=== PATIENT | male | born 1995 | race Native Hawaiian/Other Pacific Islander ===

== ENCOUNTER 2016-12-06 01:55 | Emergency (ER) | payer BC ==
[2016-12-06 02:07] VITALS: BP 123/91
[2016-12-06] MEDS ORDERED: LORazepam TAB(*) 1 MG PO ONE (02:11)
[2016-12-06 02:49] LABS: Urine Bilirubin Negative (Negative); Urine Glucose Negative (Negative); Urine Nitrite Negative (Negative)
[2016-12-06 02:50] LABS: Hematocrit 50 % (42-52); Mean Corpuscular HGB Conc 34 g/dl (31-36); Mean Corpuscular Hemoglobin 28 pg (27-31); Mean Corpuscular Volume 83 fL (80-94); Mean Platelet Volume 8 um3 (7.4-10.4); Red Cell Distribution Width 13 % (10.5-15); White Blood Count 7.2 10^3/ul (3.5-10.8)
--- NOTE | 2016-12-06 03:04 | ED ---
Rob Clements Claudia, scribed for Delmer Collins MD on 12/06/16 at 0216 . Psychiatric Complaint - HPI Summary HPI Summary: 21 year old male presents to the ED with a panic attack. Pt states that around midnight he began to have a panic attack .He notes that he had a panic attack in the past and recognized Sx. Pt states that he would like a MHE. Pt denies taking any Rx tonight for the anxiety. - History Of Current Complaint Chief Complaint: EDMentalHealth Time Seen by Provider: 12/06/16 02:05 Hx Obtained From: Patient Onset/Duration: Sudden Onset, Lasting Hours, Still Present Character: Anxious Aggravating Factor(s): Nothing Alleviating Factor(s): Nothing - Allergies/Home Medications Allergies/Adverse Reactions: Allergies Allergy/AdvReac Type Severity Reaction Status Date / Time No Known Allergies Allergy Verified 06/05/16 11:43 PMH/Surg Hx/FS Hx/Imm Hx Previously Healthy: Yes Endocrine/Hematology History: Denies: Hx Diabetes, Hx Thyroid Disease Cardiovascular History: Denies: Hx Hypertension Respiratory History: Denies: Hx Asthma, Hx Chronic Obstructive Pulmonary Disease (COPD) GI History: Denies: Hx Ulcer History: Reports: Hx Kidney Stones - RIGHT, PRESENTLY Sensory History: Reports: Hx Contacts or Glasses - GLASSES Denies: Hx Hearing Aid Opthamlomology History: Reports: Hx Contacts or Glasses - GLASSES Psychiatric History: Reports: Hx Depression - NO MEDS - Surgical History Surgery Procedure, Year, and Place: 2013 ORIF LEFT RADIUS, [facility] Hx Anesthesia Reactions: Yes - NAUSEA Infectious Disease History: No Infectious Disease History: Denies: Hx Clostridium Difficile, Hx Hepatitis, Hx Human Immunodeficiency Virus (HIV), Hx of Known/Suspected MRSA, Hx Shingles, Hx Tuberculosis, Hx Known/ Suspected VRE, Hx Known/Suspected VRSA, History Other Infectious Disease, Traveled Outside the [place] in Last 30 Days - Family History Known Family History: Positive: None Negative: Hypertension, Diabetes - Social History Alcohol Use: Occasionally Hx Substance Use: Yes Substance Use Type: Reports: Marijuana Substance Use Comment - Amount & Last Used: LAST TIME 2 WEEKS AGO Hx Tobacco Use: No Smoking Status (MU): Current Some Day Smoker Type: Cigarettes Amount Used/How Often: "SOCIALLY" Review of Systems Negative: Fever, Chills Eyes: Negative ENT: Negative Cardiovascular: Negative Respiratory: Negative Genitourinary: Negative Musculoskeletal: Negative Skin: Negative Neurological: Negative Positive: Anxious All Other Systems Reviewed And Are Negative: Yes Physical Exam Triage Information Reviewed: Yes Vital Signs On Initial Exam: Initial Vitals Temp Pulse Resp BP Pulse Ox 97.9 F 111 16 123/91 99 12/06/16 02:05 12/06/16 02:05 12/06/16 02:05 12/06/16 02:05 12/06/16 02:05 Vital Signs Reviewed: Yes Appearance: Positive: Well-Appearing Skin: Positive: Warm Head/Face: Positive: Normal Head/Face Inspection Eyes: Positive: IRAJ ENT: Positive: Hearing grossly normal Neck: Positive: Supple Respiratory/Lung Sounds: Positive: Breath Sounds Present Cardiovascular: Positive: Normal Abdomen Description: Positive: Nontender, Soft Bowel Sounds: Positive: Present Musculoskeletal: Positive: Strength/ROM Intact Neurological: Positive: Sensory/Motor Intact, Alert, Oriented to Person Place, Time Psychiatric: Positive: Anxious Diagnostics - Vital Signs Vital Signs Temp Pulse Resp BP Pulse Ox 12/06/16 02:05 97.9 F 111 16 123/91 99 - Laboratory Lab Results: Lab Results 12/06/16 12/06/16 Range/Units 02:28 02:28 WBC 7.2 (3.5-10.8) 10^3/ul RBC 6.00 H (4.0-5.4) 10^6/ul Hgb 17.0 (14.0-18.0) g/dl Hct 50 (42-52) % MCV 83 (80-94) fL MCH 28 (27-31) pg MCHC 34 (31-36) g/dl RDW 13 (10.5-15) % Plt Count 224 (150-450) 10^3/ul MPV 8 (7.4-10.4) um3 Neut % (Auto) 69.3 (38-83) % Lymph % (Auto) 22.1 L (25-47) % Charles % (Auto) 5.9 (1-9) % Eos % (Auto) 1.5 (0-6) % Baso % (Auto) 1.2 (0-2) % Absolute Neuts (auto) 5.0 (1.5-7.7) 10^3/ul Absolute Lymphs (auto) 1.6 (1.0-4.8) 10^3/ul Absolute Monos (auto) 0.4 (0-0.8) 10^3/ul Absolute Eos (auto) 0.1 (0-0.6) 10^3/ul Absolute Basos (auto) 0.1 (0-0.2) 10^3/ul Absolute Nucleated RBC 0 10^3/ul Nucleated RBC % 0 Urine Color Yellow Urine Appearance Clear Urine pH 6.0 (5-9) Ur Specific [place] 1.015 (1.010-1.030) Urine Protein Negative (Negative) Urine Ketones Trace H (Negative) Urine Blood Negative (Negative) Urine Nitrate Negative (Negative) Urine Bilirubin Negative (Negative) Urine Urobilinogen Negative (Negative) Ur Leukocyte Esterase Negative (Negative) Urine Glucose Negative (Negative) Result Diagrams: 12/06/16 02:28 12/06/16 02:28 Lab Statement: Any lab studies that have been ordered have been reviewed, and results considered in the medical decision making process. Re-Evaluation - Re-Evaluation Second Eval Re-Evaluation Time: 05:34 - pt seen and cleared by crisis Change: Improved Course/Dx - Course Assessment/Plan: Pt presents with anxiety. Pt is medically cleared for a MHE at 2:22am on 12/06/16. - Differential Dx/Clinical Impression Provider Diagnosis: Anxiety - Physician Notifications Patient Is Medically Stable For: Psych Evaluation - 2:16 on 12/06/16 Discharge - Discharge Plan Condition: Improved Disposition: HOME Referrals: Tirso Lira MD [Primary Care Provider] - The documentation as recorded by the Rob gregg Claudia accurately reflects the service I personally performed and the decisions made by , Delmer Collins MD.
[2016-12-06 03:06] LABS: ALT 39 U/L (7-52); AST 23 U/L (13-39); Albumin 4.9 g/dL (3.2-5.2); Alkaline Phosphatase 70 U/L (34-104); Anion Gap 9 mmol/L (2-11); BUN/Creatinine Ratio 15.9 (8-20); Benzodiazepine Urine Screen None Detected (None Detect); Blood Urea Nitrogen 14 mg/dL (6-24); CO2 Carbon Dioxide 24 mmol/L (22-32); Calcium 9.6 mg/dL (8.6-10.3); Chloride 103 mmol/L (101-111); EGFR African American 140.6 (>60); EGFR Non-African American 109.3 (>60); Globulin 2.7 g/dL (2-4); Glucose 98 mg/dL (70-100); Potassium 3.7 mmol/L (3.5-5.0); Sodium 136 mmol/L (133-145); Total Protein 7.6 g/dL (6.4-8.9)
[2016-12-06 03:18] LABS: Acetaminophen < 15 mcg/mL; Alcohol < 10 mg/dL (<10); Salicylate < 2.50 mg/dL (<30)
[2016-12-06 03:29] LABS: TSH (Thyroid Stimulating Horm) 1.93 mcIU/mL (0.34-5.60)
== END 2016-12-06 05:35 | disposition home or self-care (01) ==
LOC: ED 01:55
DX: F41.1 Generalized anxiety disorder (principal); Z72.0 Tobacco use
CPT/HCPCS: 36415; 80053; 80307; 80320; 80329; 81003; 84443; 85025; 99284; A9270-GY; G0480

== ENCOUNTER 2017-10-31 17:03 | Emergency (ER) | payer BC ==
--- OUTSIDE RECORDS SUMMARY | 2017-10-31 20:09 | XMS REPORT ---
:1995 External Reference #:[id number] Author Organization [facility] Address [address] [place] [address] Phone [phone] Care Team Providers Name Role Phone Tirso Lira MD Care Team Information Family Medicine Physician Unavailable Tirso Lira MD Primary Care Physician Unavailable Payers Type Date Identification Numbers Payment Provider Subscriber Commercial Effective: Policy Number: Out Of Area 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 Active episode, unspecified Onset: 05/30/2016 Kidney stone Tirso Lira M.D. Resolved Resolved: 07/11/2016 Onset: 05/30/2016 Chalazion Tirso Lira M.D. Resolved Resolved: 07/11/2016 Onset: 05/30/2016 Anxiety state Tirso Lira M.D. Resolved Resolved: 07/11/2016 Family History Date Family Member(s) Problem(s) Comments Father Hypertension Father Hyperlipidemia Father Gastroesophageal Reflux Disease (GERD) Social History Type Date Description Comments Smoking Patient is a current smoker, smokes Has cut down from a PPD to 6 every day cigarettes/day. Smoking 10/31/2017 Patient is a former smoker Patient reports he has not smoked in 3 weeks Allergies, Adverse Reactions, Alerts Date Description Reaction Status Severity Comments 05/30/2016 NKDA active Medications Medication Date Status Form Strength Qnty SIG Indications Ordering Provider Johan 10/31 Active Tablets 500mg 20tab 1 by Oxana s mouth Russell, twice a [employer] day for 10 days Hydrocodone-Acetami 10/31 Active Tablets 5-325mg 60tab 1 by Oxana mcpherson s mouth Russell, four [employer] times a day as needed pain Methylphenidate HCL 09/05 Hx Tablets 10mg 60tab 1 by F90.0 Tirso AJudith s mouth Darlow, - once a M.D. two times a day (separate d by 4 hours) as directed Escitalopram 09/05 Hx Tablets 20mg 30tab 1 by F41.9 Tirso AJudith Oxalate s mouth Darlow, - every day M.D. 10/31 Dexmethylphenidate 08/01 Hx Caps ER 20mg 30cap 1 by F90.0 Tirso AJudith HCL ER /2015 24HR s mouth in Dar, - the M.D. 10/31 Escitalopram 08/01 Hx Tablets 10mg 30tab 1 by F41.9 Tirso A. Oxalate s mouth Darlow, - every day M.D. 09/05 Bupropion HCL ER 30 Hx Tablets 150mg 90tab 2 by F32.9 Tirso A. (XL) ER 24HR s mouth Darlow, - every day M.D. 09/05 Flomax 00/00 Hx Capsules 0.4mg 1 by Unknown /0000 mouth - every day 07/11 Percocet 00/00 Hx Tablets 5-325mg 1 po q 4 Unknown /0000 hrs prn - 07/11 Medications Administered in Office Medication Date Status Form Strength Qnty SIG Indications Ordering Provider TB Intradermal Administered Injection Tirso A. Test Lesley Lira M.D. TB Intradermal Administered Injection Tirso A. Test Lesley Lira M.D. TB Intradermal Administered Injection Unknown Test 009 TB Intradermal Administered Injection Unknown Test 000 Immunizations CPT Code Status Date Vaccine Lot # U-HPV Given 11/03/2014 HPV,Unspecified U-Flu Given 11/03/2014 Influenza,Unspecified U-Menin Given 10/19/2013 Meningococcal,Unspecified U-HPV Given 07/21/2012 HPV,Unspecified U-Flu Given 07/21/2012 Influenza,Unspecified U-HepA Given 07/26/2011 Hepatitis A,Unspecified U-Flu Given 07/26/2011 Influenza,Unspecified U-HepA Given 07/25/2010 Hepatitis A,Unspecified U-FluNa Given 07/25/2010 Influenza,Nasal,Unspecified [id number] Given 02/01/2009 Varicella (Chicken Pox) Immunization U-Menin Given 09/30/2007 Meningococcal,Unspecified 14158 Given 09/30/2007 Tdap Tetanus, W Pertussis 89770 Given 05/29/2005 Varicella (Chicken Pox) Immunization 09688 Given 06/25/2000 MMR Virus Immunization U-DTaP Given 06/25/2000 DTaP,Unspecified U-Polio Given 06/25/2000 Polio,Unspecified U-HIB Given 09/23/1996 Hib,Unspecified U-DTaP Given 09/23/1996 DTaP,Unspecified 51661 Given 05/24/1996 MMR Virus Immunization U-HepB Given 01/23/1996 Hepatitis B,Unspecified U-DTaP Given 1995 DTaP,Unspecified U-HIB Given 1995 Hib,Unspecified U-Polio Given 1995 Polio,Unspecified U-Polio Given 1995 Polio,Unspecified U-HIB Given 1995 Hib,Unspecified U-DTaP Given 1995 DTaP,Unspecified U-Polio Given 1995 Polio,Unspecified U-HIB Given 1995 Hib,Unspecified U-HepB Given 1995 Hepatitis B,Unspecified U-DTaP Given 1995 DTaP,Unspecified U-HepB Given 1995 Hepatitis B,Unspecified Vital Signs Date Vital Result Comment 10/31/2017 BP Systolic 120 mmHg BP Diastolic 62 mmHg Heart Rate 80 /min Body Temperature 99.3 F Respiratory Rate 16 /min Height 67 inches 5'7" Weight 157.25 lb BMI (Body Mass Index) 24.6 kg/m2 09/05/2016 BP Systolic 124 mmHg BP Diastolic 80 mmHg Heart Rate 92 /min Body Temperature 98.6 F Respiratory Rate 16 /min Height 67 inches 5'7" Weight 152.00 lb BMI (Body Mass Index) 23.8 kg/m2 08/01/2016 BP Systolic 120 mmHg BP Diastolic 76 mmHg Heart Rate 96 /min Body Temperature 97.8 F Respiratory Rate 16 /min Height 67 inches 5'7" Weight 160.00 lb BMI (Body Mass Index) 25.1 kg/m2 07/11/2016 BP Systolic 122 mmHg BP Diastolic 76 mmHg Heart Rate 80 /min Body Temperature 97.5 F Respiratory Rate 16 /min Height 67 inches 5'7" Weight 158.00 lb BMI (Body Mass Index) 24.7 kg/m2 05/30/2016 BP Systolic 112 mmHg BP Diastolic 70 mmHg Heart Rate 76 /min Body Temperature 97.4 F Respiratory Rate 16 /min Height 67 inches 5'7" Weight 157.00 lb BMI (Body Mass Index) 24.6 kg/m2 Results Test Date Test Result H/L Range Note Laboratory test finding 12/06/2016 Acetaminophen < 15 g/mL 1 Alcohol < 10 mg/dL <10 Salicylate < 2.50 mg/dL <30 TSH (Thyroid Stim Horm) 1.93 mcIU/mL 0.34-5.60 Comp Metabolic Panel 12/06/2016 Sodium 136 mmol/L 133-145 Potassium 3.7 mmol/L 3.5-5.0 Chloride 103 mmol/L 101-111 Co2 Carbon Dioxide 24 mmol/L 22-32 Anion Gap 9 mmol/L 2-11 Glucose 98 mg/dL 70-100 Blood Urea Nitrogen 14 mg/dL 6-24 Creatinine 0.88 mg/dL 0.67-1.17 BUN/Creatinine Ratio 15.9 8-20 Calcium 9.6 mg/dL 8.6-10.3 Total Protein 7.6 g/dL 6.4-8.9 Albumin 4.9 g/dL 3.2-5.2 Globulin 2.7 g/dL 2-4 Albumin/Globulin Ratio 1.8 1-3 Total Bilirubin 0.40 mg/dL 0.2-1.0 Alkaline Phosphatase 70 U/L 34-104 Alt 39 U/L 7-52 Ast 23 U/L 13-39 Egfr Non- 109.3 >60 Egfr 140.6 >60 2 CBC Auto Diff 12/06/2016 White Blood Count 7.2 10^3/uL 3.5-10.8 Red Blood Count 6.00 10^6/uL High 4.0-5.4 Hemoglobin 17.0 g/dL 14.0-18.0 Hematocrit 50 % 42-52 Mean Corpuscular Volume 83 fL 80-94 Mean Corpuscular Hemoglobin 28 pg 27-31 Mean Corpuscular HGB Conc 34 g/dL 31-36 Red Cell Distribution Width 13 % 10.5-15 Platelet Count 224 10^3/uL 150-450 Mean Platelet Volume 8 um3 7.4-10.4 Abs Neutrophils 5.0 10^3/uL 1.5-7.7 Abs Lymphocytes 1.6 10^3/uL 1.0-4.8 Abs Monocytes 0.4 10^3/uL 0-0.8 Abs Eosinophils 0.1 10^3/uL 0-0.6 Abs Basophils 0.1 10^3/uL 0-0.2 Abs Nucleated RBC 0 10^3/uL Granulocyte % 69.3 % 38-83 Lymphocyte % 22.1 % Low 25-47 Monocyte % 5.9 % 1-9 Eosinophil % 1.5 % 0-6 Basophil % 1.2 % 0-2 Nucleated Red Blood Cells % 0 Urinalysis Profile 12/06/2016 Urine Color Yellow Urine Appearance Clear Urine Specific Scott 1.015 1.010-1.030 Urine pH 6.0 5-9 Urine Urobilinogen Negative Negative Urine Ketones Trace Negative Urine Protein Negative Negative Urine Leukocytes Negative Negative Urine Blood Negative Negative Urine Nitrite Negative Negative Urine Bilirubin Negative Negative Urine Glucose Negative Negative Urine Drug SCR ED 12/06/2016 Amphetamine Ur Screen None Detected None Detect & Pain Clinic Barbiturates Urine Screen None Detected None Detect Benzodiazepine Urine Screen None Detected None Detect Urine Cannabinoids Screen None Detected None Detect Urine Cocaine Screen None Detected None Detect Urine Opiates Screen None Detected None Detect Urine Phencyclidine Screen None Detected None Detect 3 Laboratory test 09/05/2016 TSH 1.40 mIU/L 0.50-6.00 finding Laboratory test 06/05/2016 Surgical Pathology SEE RESULT BELOW 4 finding Stone Analysis 06/05/2016 Kidney Stone Source Ureter Kidney Stone 1st Constituent See Comment 5 Kidney Stone 2nd Constituent See Comment 6 Urinalysis Profile 05/27/2016 Urine Color Straw Urine Appearance Clear Urine Specific [place] 1.011 1.010-1.030 Urine pH 6.0 5-9 Urine Urobilinogen Negative Negative Urine Ketones Trace Negative Urine Protein Negative Negative Urine Leukocytes Negative Negative Urine Blood 2+ Negative Urine Nitrite Negative Negative Urine Bilirubin Negative Negative Urine Glucose Negative Negative Urine White Blood Cell Trace(0-5/hpf) Absent Urine Red Blood Cell 3+(>10/hpf) Absent Urine Bacteria Absent Absent CBC Auto Diff 05/27/2016 White Blood Count 9.9 10^3/uL 3.5-10.8 Red Blood Count 5.78 10^6/uL High 4.0-5.4 Hemoglobin 16.5 g/dL 14.0-18.0 Hematocrit 49 % 42-52 Mean Corpuscular Volume 84 fL 80-94 Mean Corpuscular Hemoglobin 29 pg 27-31 Mean Corpuscular HGB Conc 34 g/dL 31-36 Red Cell Distribution Width 13 % 10.5-15 Platelet Count 217 10^3/uL 150-450 Mean Platelet Volume 8 um3 7.4-10.4 Abs Neutrophils 8.7 10^3/uL High 1.5-7.7 Abs Lymphocytes 0.4 10^3/uL Low 1.0-4.8 Abs Monocytes 0.4 10^3/uL 0-0.8 Abs Eosinophils 0.2 10^3/uL 0-0.6 Abs Basophils 0.2 10^3/uL 0-0.2 Abs Nucleated RBC 0.01 10^3/uL Granulocyte % 87.9 % High 38-83 Lymphocyte % 4.5 % Low 25-47 Monocyte % 3.9 % 1-9 Eosinophil % 1.6 % 0-6 Basophil % 2.1 % High 0-2 Nucleated Red Blood Cells % 0.1 Inr/Protime 05/27/2016 Inr 0.87 Low 0.89-1.11 Laboratory test finding 05/27/2016 Partial Thrombo Time 32.7 seconds 26.0 -36.3 PTT Comp Metabolic Panel 05/27/2016 Sodium 136 mmol/L 133-145 Potassium 4.0 mmol/L 3.5-5.0 Chloride 102 mmol/L 101-111 Co2 Carbon Dioxide 28 mmol/L 22-32 Anion Gap 6 mmol/L 2-11 Glucose 108 mg/dL High 70-100 Blood Urea Nitrogen 16 mg/dL 6-24 Creatinine 1.29 mg/dL High 0.67-1.17 BUN/Creatinine Ratio 12.4 8-20 Calcium 10.0 mg/dL 8.6-10.3 Total Protein 7.7 g/dL 6.4-8.9 Albumin 5.2 g/dL 3.2-5.2 Globulin 2.5 g/dL 2-4 Albumin/Globulin Ratio 2.1 1-3 Total Bilirubin 0.40 mg/dL 0.2-1.0 Alkaline Phosphatase 65 U/L 34-104 Alt 28 U/L 7-52 Ast 21 U/L 13-39 Egfr Non- 70.3 >60 Egfr 90.4 >60 7 Laboratory test finding 05/27/2016 Lipase 10 U/L Low 11.0-82.0 C Reactive Protein < 1.00 mg/L < 5.00 8 CBC Auto Diff 03/28/2016 White Blood Count 9.5 10^3/uL 3.5-10.8 Red Blood Count 5.94 10^6/uL High 4.0-5.4 Hemoglobin 16.9 g/dL 14.0-18.0 Hematocrit 51 % 42-52 Mean Corpuscular Volume 86 fL 80-94 Mean Corpuscular Hemoglobin 28 pg 27-31 Mean Corpuscular HGB Conc 33 g/dL 31-36 Red Cell Distribution Width 13 % 10.5-15 Platelet Count 226 10^3/uL 150-450 Mean Platelet Volume 7 um3 Low 7.4-10.4 Abs Neutrophils 7.5 10^3/uL 1.5-7.7 Abs Lymphocytes 1.3 10^3/uL 1.0-4.8 Abs Monocytes 0.5 10^3/uL 0-0.8 Abs Eosinophils 0.2 10^3/uL 0-0.6 Abs Basophils 0.1 10^3/uL 0-0.2 Abs Nucleated RBC 0 10^3/uL Granulocyte % 78.5 % 38-83 Lymphocyte % 13.8 % Low 25-47 Monocyte % 4.9 % 1-9 Eosinophil % 2.1 % 0-6 Basophil % 0.7 % 0-2 Nucleated Red Blood Cells % 0 Comp Metabolic Panel 03/28/2016 Sodium 137 mmol/L 133-145 Potassium 4.1 mmol/L 3.5-5.0 Chloride 103 mmol/L 101-111 Co2 Carbon Dioxide 29 mmol/L 22-32 Anion Gap 5 mmol/L 2-11 Glucose 98 mg/dL 70-100 Blood Urea Nitrogen 11 mg/dL 6-24 Creatinine 0.83 mg/dL 0.67-1.17 BUN/Creatinine Ratio 13.3 8-20 Calcium 9.5 mg/dL 8.6-10.3 Total Protein 7.0 g/dL 6.4-8.9 Albumin 4.9 g/dL 3.2-5.2 Globulin 2.1 g/dL 2-4 Albumin/Globulin Ratio 2.3 1-3 Total Bilirubin 0.40 mg/dL 0.2-1.0 Alkaline Phosphatase 69 U/L 34-104 Alt 40 U/L 7-52 Ast 20 U/L 13-39 Egfr Non- 117.0 >60 Egfr 150.4 >60 9 Laboratory test finding 03/28/2016 C Reactive Protein < 1.00 mg/L &lt ; 5.00 10 Urinalysis Profile 03/28/2016 Urine Color Straw Urine Appearance Clear Urine Specific [place] 1.010 1.010-1.030 Urine pH 7.0 5-9 Urine Urobilinogen Negative Negative Urine Ketones Negative Negative Urine Protein Negative Negative Urine Leukocytes Negative Negative Urine Blood 1+ Negative Urine Nitrite Negative Negative Urine Bilirubin Negative Negative Urine Glucose Negative Negative Urine White Blood Cell Absent Absent Urine Red Blood Cell 3+(>10/hpf) Absent Urine Bacteria Absent Absent 1 Therapeutic concentration: <50 ug/mL Toxic concentration: >120 ug/mL 2 Because ethnic data is not always readily available, this report includes an eGFR for both -Americans and non- Americans. The National Kidney Disease Education Program (NKDEP) does not endorse the use of the MDRD equation for patients that are not between the ages of 18 and 70, are , have extremes of body size, muscle mass, or nutritional status, or are non- or non-. According to the National Kidney Foundation, irrespective of diagnosis, the stage of the disease is based on the level of kidney function: Stage Description GFR(mL/min/1.73 m(2)) 1 Kidney damage with normal or decreased GFR 90 2 Kidney damage with mild decrease in GFR 60-89 3 Moderate decrease in GFR 30-59 4 Severe decrease in GFR 15-29 5 Kidney failure <15 (or dialysis) 3 The urine specimen was tested at the listed cutoffs: Drug class test level (ng/mL) Amphetamines 500 Barbiturates 200 Benzodiazepine metabolites 200 Cocaine metabolites 150 Cannabinoids 50 Opiates 300 Pcp 25 Specimen was received without chain of custody. Results should be used for medical purposes only. 4 SEE RESULT BELOW Name: GARCIA COOK : [address]: Jori Pillai MD Acct: [id number] Unit: [id number] AGE: 21 Location: [place] Re06/05/16 SEX: M [place] [facility] [place]: [id number] BEVERLY: 06/05/16-[address]: Jori Pillai MD REQ: [id number] RECD: 06/05/16-4040 STATUS: SOUT _ ORDERED: LEVEL I FINAL DIAGNOSIS Right ureteral stone, lithotomy: Calculus (Gross diagnosis). PRE-OPERATIVE DIAGNOSIS Right ureteral calculus. GROSS DESCRIPTION The specimen is received fresh labeled, Calculus from Right Ureter, and consists of a 0.4 x 0.4 x 0.2 cm coppola-brown hard fragments consistent with a ureteral calculus. The specimen is submitted for chemical analysis. Per established hospital medical staff protocol, no tissue is submitted. Gross only. Signed (signature on file) Woody Healy MD 1344 END OF REPORT * ML=Testing performed at Main Lab DEPARTMENT OF PATHOLOGY, [address] [place] [address] Woody Healy M.D. Director [facility] # [id number] 5 RESULT: 60% Calcium oxalate dihydrate 6 RESULT: 40% Calcium phosphate (apatite) Test Performed by: [address] [address] Shirt Finisher: Ben Schroeder II, M.D., Ph.D. 7 Because ethnic data is not always readily available, this report includes an eGFR for both -Americans and non- Americans. The National Kidney Disease Education Program (NKDEP) does not endorse the use of the MDRD equation for patients that are not between the ages of 18 and 70, are , have extremes of body size, muscle mass, or nutritional status, or are non- or non-. According to the National Kidney Foundation, irrespective of diagnosis, the stage of the disease is based on the level of kidney function: Stage Description GFR(mL/min/1.73 m(2)) 1 Kidney damage with normal or decreased GFR 90 2 Kidney damage with mild decrease in GFR 60-89 3 Moderate decrease in GFR 30-59 4 Severe decrease in GFR 15-29 5 Kidney failure <15 (or dialysis) 8 Acute inflammation: >10.00 9 Because ethnic data is not always readily available, this report includes an eGFR for both -Americans and non- Americans. The National Kidney Disease Education Program (NKDEP) does not endorse the use of the MDRD equation for patients that are not between the ages of 18 and 70, are , have extremes of body size, muscle mass, or nutritional status, or are non- or non-. According to the National Kidney Foundation, irrespective of diagnosis, the stage of the disease is based on the level of kidney function: Stage Description GFR(mL/min/1.73 m(2)) 1 Kidney damage with normal or decreased GFR 90 2 Kidney damage with mild decrease in GFR 60-89 3 Moderate decrease in GFR 30-59 4 Severe decrease in GFR 15-29 5 Kidney failure <15 (or dialysis) 10 Acute inflammation: >10.00 Procedures Description No Information Encounters Type Date Location Provider CPT E/M Dx Office Visit 09/05/2016 2:00p Main Office Tirso Lira M.D. [id number] F90.0 F41.9 Office Visit 08/01/2016 1:50p Main Office Tirso Lira M.D. 08648 F90.0 F41.9 Office Visit 07/11/2016 4:20p Main Office Tirso Lira M.D. 30128 Z00.00 F32.9 Office Visit 05/30/2016 2:40p Main Office Tirso Lira M.D. 41546 F32.9 F90.0 F41.9 N20.0 H00.14 Plan of Care 10/31/2017 - Oxana Wells, [id number] Acute pyelonephritisComments:start cipro , follow-up with Ros[facility] next week, call SHERLEY if condition changes/worsens in any wayR31.9 Hematuria, unspecifiedNew Labs:Ua - Micro (Fma)R50.9 Fever, [id number] Other malaiseAllNew Medication:Cipro 500 mgHydrocodone- Acetaminophen 5-325 mgComments:~B_~U_Medication Management~b_~u_ Patient Understands medications he 's taking? Yes No Are there Barriers to Adherence? Yes No Has the patient been asked about herbal supplements and therapies, and OTC meds? Yes No
[2017-10-31] MEDS ORDERED: NS 0.9% 1000 ML* 1,000 ML IV ONE (20:52)
[2017-10-31] MEDS ORDERED: Ondansetron INJ* 2 MG/ML VIAL IV ONE (20:52)
[2017-10-31] MEDS ORDERED: HYDROmorphone INJ* 1 MG/ML CARPUJECT SYRINGE IV ONE (20:52)
[2017-10-31] MEDS ORDERED: Ketorolac INJ* 30 MG/ML 1 ML VIAL IV ONE (20:52)
[2017-10-31 21:08] LABS: Urine Bacteria Absent (Absent); Urine Bilirubin Negative (Negative); Urine Glucose Negative (Negative); Urine Nitrite Negative (Negative)
--- NOTE | 2017-10-31 21:15 | RAD ---
Indication: Left flank pain. CT of the abdomen and pelvis was performed without oral or IV contrast administration. Coronal and sagittal reconstructed images were obtained. Lung bases demonstrate no pleural fluid, nodules or masses. Heart is of normal size without evidence of pericardial effusion. Liver is normal in size. No focal lesions or intrahepatic ductal dilatation is noted. The gallbladder demonstrates partial contraction. No pericholecystic fluid or wall thickening is identified. The pancreas demonstrates no mass or pancreatic duct dilatation. The spleen is normal in size. No adrenal lesions are noted. The kidneys demonstrate mild left hydronephrosis. There is a calculi in the proximal left ureter measuring 5 mm. This is at the L3-L4 level. The right kidney demonstrates no evidence of obstructive uropathy. No retroperitoneal lymphadenopathy is noted. No dilated loops of bowel are noted. The colon is filled with stool. CT of the pelvis demonstrates normal appendix. The urinary bladder is otherwise unremarkable. The prostate is otherwise unremarkable. IMPRESSION: Calcification measuring 4 mm it is in the mid left ureter at the L3-L4 level with mild left hydronephrosis and hydroureter. Normal appendix.
[2017-10-31 21:16] VITALS: BP 141/86
[2017-10-31] MEDS ORDERED: HYDROcodone/ACETAMIN 5-325 MG* 1 TAB PO ONE (21:27)
[2017-10-31] MEDS ORDERED: Tamsulosin CAP* 0.4 MG PO ONE (21:27)
--- NOTE | 2017-10-31 22:07 | ED ---
Princess Clements Gabriel, scribed for Isauro Chakraborty MD on 10/31/17 at 2048 . Back Pain - HPI Summary HPI Summary: This patient is a 22 year old M presenting to [facility] accompanied by father with a chief complaint of flank pain since 6 days ago. The patient rates the pain 7/ 10 in severity and describes it as waxing and waning Patient reports frequent urination. Patient denies dysuria. Patient was sent from Dr. Pillai his urologist. Patient also has a history of kidney stones. - History of Current Complaint Chief Complaint: EDFlankPain Stated Complaint: POSSIBLE KIDNEY INFECTION Time Seen by Provider: 10/31/17 20:38 Hx Obtained From: Patient Onset/Duration: Still Present Onset/Duration: Still Present Timing: Intermittent - waxing and waning Pain Intensity: 6 Pain Scale Used: 0-10 Numeric Associated Signs And Symptoms: Positive: Negative - dysuria, Other - frequent urination - Allergies/Home Medications Allergies/Adverse Reactions: Allergies Allergy/AdvReac Type Severity Reaction Status Date / Time No Known Allergies Allergy Verified 06/05/16 11:43 PMH/Surg Hx/FS Hx/Imm Hx Previously Healthy: No Endocrine/Hematology History: Denies: Hx Diabetes, Hx Thyroid Disease Cardiovascular History: Denies: Hx Hypertension Respiratory History: Denies: Hx Asthma, Hx Chronic Obstructive Pulmonary Disease (COPD) GI History: Denies: Hx Ulcer History: Reports: Hx Kidney Stones - RIGHT, PRESENTLY Sensory History: Reports: Hx Contacts or Glasses - GLASSES Denies: Hx Hearing Aid Opthamlomology History: Reports: Hx Contacts or Glasses - GLASSES Psychiatric History: Reports: Hx Depression - NO MEDS Denies: Hx Eating Disorder, Hx of Violent Episodes Against Others - Surgical History Surgery Procedure, Year, and Place: 2013 ORIF LEFT RADIUS, [facility] Hx Anesthesia Reactions: Yes - NAUSEA Infectious Disease History: No Infectious Disease History: Denies: Hx Clostridium Difficile, Hx Hepatitis, Hx Human Immunodeficiency Virus (HIV), Hx of Known/Suspected MRSA, Hx Shingles, Hx Tuberculosis, Hx Known/ Suspected VRE, Hx Known/Suspected VRSA, History Other Infectious Disease, Traveled Outside the [place] in Last 30 Days - Family History Known Family History: Negative: Hypertension, Diabetes - Social History Alcohol Use: Occasionally Hx Substance Use: Yes Substance Use Type: Reports: Marijuana Substance Use Comment - Amount & Last Used: LAST TIME 2 WEEKS AGO Hx Tobacco Use: Yes Smoking Status (MU): Former Smoker Type: Cigarettes Amount Used/How Often: "SOCIALLY" Review of Systems Genitourinary: Negative - frequent urination Negative: dysuria Positive: Other - flank pain All Other Systems Reviewed And Are Negative: Yes Physical Exam - Summary Physical Exam Summary: Appearance: The patient is well-nourished in no acute distress and in no acute pain. Skin: The skin is warm and dry and skin color reflects adequate perfusion. HEENT: ~The head is normocephalic and atraumatic. The pupils are equal and reactive. The conjunctivae are clear and without drainage. ~Nares are patent and without drainage. ~Mouth reveals moist mucous membranes and the throat is without erythema and exudate. ~The external ears are intact. The ear canals are patent and without drainage. The tympanic membranes are intact. Neck: the neck is supple with full range of motion and non-tender. There are no carotid bruits. ~There is no neck vein distension. Respiratory: Chest is non-tender. ~Lungs are clear to auscultation and breath sounds are symmetrical and equal. Cardiovascular: Heart is regular rate and rhythm. ~There is no murmur or rub auscultated. ~~There is no peripheral edema and pulses are symmetrical and equal. Abdomen: The abdomen is soft. ~There are normal bowel sounds heard in all four quadrants and there is no organomegaly palpated. Mild tenderness in left lower para lumbar area Musculoskeletal: There is no back tenderness noted. ~Extremities are non-tender with full range of motion. ~There is good capillary refill. ~There is no peripheral edema or calf tenderness elicited. Neurological: Patient is alert and oriented to person, place and time. ~The patient has symmetrical motor strength in all four extremities. ~Cranial nerves are grossly intact. Deep tendon reflexes are symmetrical and equal in all four extremities. Psychiatric: The patient has an appropriate affect and does not exhibit any anxiety or depression. Triage Information Reviewed: Yes Vital Signs On Initial Exam: Initial Vitals Temp Pulse Resp BP Pulse Ox 98.7 F 107 18 108/94 98 10/31/17 17:08 10/31/17 17:08 10/31/17 17:08 10/31/17 17:08 10/31/17 17:08 Vital Signs Reviewed: Yes - Beatriz Coma Scale Coma Scale Total: 15 Diagnostics - Vital Signs Vital Signs Temp Pulse Resp BP Pulse Ox 10/31/17 17:08 98.7 F 107 18 108/94 98 - Laboratory Lab Results: Lab Results 10/31/17 Range/Units 20:50 Urine Color Yellow Urine Appearance Cloudy Urine pH 7.0 (5-9) Ur Specific [place] 1.013 (1.010-1.030) Urine Protein Negative (Negative) Urine Ketones Negative (Negative) Urine Blood 3+ H (Negative) Urine Nitrate Negative (Negative) Urine Bilirubin Negative (Negative) Urine Urobilinogen Negative (Negative) Ur Leukocyte Esterase Negative (Negative) Urine WBC (Auto) Trace(0-5/hpf) (Absent) Urine RBC (Auto) 3+(>10/hpf) H (Absent) Urine Bacteria Absent (Absent) Urine Glucose Negative (Negative) Lab Statement: Any lab studies that have been ordered have been reviewed, and results considered in the medical decision making process. - CT CT ABD/Pelvis CT Interpretation Completed By: Radiologist - Calcification measuring 4 mm it is in the mid left ureter at the L3-L4 level with mild left hydronephrosis and hydroureter. Normal appendix. ED physician has reviewed this report and agrees. Back Pain Course/Dx - Course Course Of Treatment: Mr. Cook presented with several days of left flank pain. He was found to have a 4 mm mid left ureter stone with mild obstruction and a negative U/A. - Diagnoses Provider Diagnoses: Kidney stone on left side Discharge - Discharge Plan Condition: Stable Disposition: HOME Prescriptions: HYDROcodone/ACETAMIN 5-325 MG* [[place] 5-325 TAB*] 1 tab PO Q6H PRN #20 tab MDD 4 PRN Reason: Pain Tamsulosin CAP* [Flomax CAP*] 0.4 mg PO DAILY #7 cap Patient Education Materials: Hydrocodone/Acetaminophen (By mouth), Tamsulosin ( By mouth), Kidney Stones (ED) Referrals: Tirso Lira MD [Primary Care Provider] - Jori Pillai MD [Medical Doctor] - 3 Days Additional Instructions: Return to emergency department for new or worsening symptoms. The documentation as recorded by the Princess gregg Gabriel accurately reflects the service I personally performed and the decisions made by , Isauro Chakraborty MD.
== END 2017-10-31 21:54 | disposition home or self-care (01) ==
LOC: ED 17:03
DX: N20.0 Calculus of kidney (principal)
CPT/HCPCS: 74176; 81003; 81015; 96360; 96374; 96375; 99282; J1170; J1885; J2405